=== PATIENT | male | born 1970 ===

== ENCOUNTER 2017-08-09 11:59 | Inpatient (IN) | payer OTHER ==
[2017-08-09] MEDS ORDERED: HYDROmorphone 0.5 mg/0.5 ml ISec IVP STA (12:55)
[2017-08-09] MEDS ORDERED: Sodium Chloride 0.9% 500 ML IV STA (12:56)
--- NOTE | 2017-08-09 12:59 | ED PDOC ---
HPI: Back Time Seen by Provider: 08/09/17 12:42 Chief Complaint (Nursing): Back Pain Chief Complaint (Provider): Back pain History Per: Patient History/Exam Limitations: no limitations Onset/Duration Of Symptoms: Days (months) Current Symptoms Are (Timing): Still Present Additional Complaint(s): Pt. with low back pain, meds not helping. Increasing pain. No numbness, tingles, weakness, dizziness, fever, cough, runny nose. No abd pain. Past Medical History Reviewed: Nursing Documentation, Vital Signs Vital Signs: Last Vital Signs Temp 98.8 F 08/09/17 12:13 Pulse 77 08/09/17 12:13 Resp 16 08/09/17 12:13 BP 145/89 08/09/17 12:13 Pulse Ox 100 08/09/17 12:13 - Medical History PMH: Back Problems - Surgical History Surgical History: No Surg Hx - Family History Family History: States: Unknown Family Hx - Living Arrangements Living Arrangements: With Family - Social History Alcohol: None Drugs: Denies - Home Medications Home Medications: Ambulatory Orders Medication Instructions Recorded Diclofenac Sodium [Voltaren] 50 mg PO TID PRN 08/09/17 Famotidine [Pepcid] 20 mg PO BID 08/09/17 Gabapentin [Neurontin] 600 mg PO TID 08/09/17 Ibuprofen [Motrin Tab] 800 mg PO TID PRN 08/09/17 Methocarbamol [Robaxin] 750 mg PO TID PRN 08/09/17 - Allergies Allergies/Adverse Reactions: Allergies Allergy/AdvReac Type Severity Reaction Status Date / Time No Known Allergies Allergy Verified 08/09/17 12:13 Review of Systems ROS Statement: Except As Marked, All Systems Reviewed And Found Negative Musculoskeletal: Positive for: Back Pain Physical Exam - Reviewed Nursing Documentation Reviewed: Yes Vital Signs Reviewed: Yes - Physical Exam Appears: Positive for: Non-toxic, No Acute Distress Head Exam: Positive for: ATRAUMATIC, NORMAL INSPECTION, NORMOCEPHALIC Skin: Positive for: Normal Color, Warm, DRY Eye Exam: Positive for: EOMI, Normal appearance, PERRL ENT: Positive for: Normal ENT Inspection Neck: Positive for: Normal, Painless ROM Cardiovascular/Chest: Positive for: Regular Rate, Rhythm Respiratory: Positive for: CNT, Normal Breath Sounds Gastrointestinal/Abdominal: Positive for: Normal Exam, Bowel Sounds, Soft. Negative for: Tenderness Back: Positive for: Other (mild tender across lower) Extremity: Positive for: Normal ROM. Negative for: Tenderness, Pedal Edema Neurologic/Psych: Positive for: Alert, Oriented. Negative for: Motor/Sensory Deficits - ECG O2 Sat by Pulse Oximetry: 100 Pulse Ox Interpretation: Normal - Progress ED Course And Treament: 1259: Stable. No numbness, tingles, incontinence, constipation. Will need further back pain eval. Spoke with Dr. Dee who will admit for further eval and tx. Disposition - Clinical Impression Clinical Impression: Back pain Counseled Patient/Family Regarding: Studies Performed, Diagnosis - Disposition Disposition Time: 13:01 Condition: FAIR - Pt Status Changed To: Hospital Disposition Of: Inpatient - Admit Certification Admit to Inpatient:: After my assessment, the patient will require hospitalization for at least two midnights. This is because of the severity of symptoms shown, intensity of services needed, and/or the medical risk in this patient being treated as an outpatient. - POA Present On Arrival: None
[2017-08-09 13:32] LABS: BASO # 0.1 K/uL (0.0-0.2); BASO % 0.7 % (0.0-2.0); EOS # 0.3 K/uL (0.0-0.7); EOS % 2.7 % (0.0-4.0); HEMATOCRIT 42.9 % (35.0-51.0); LYMPH # 1.7 K/uL (1.0-4.3); LYMPH % 16.9 % (20.0-40.0); MEAN CELL VOLUME 83.4 fl (80.0-94.0); MEAN CORPUSCULAR HEMOGLOBIN 28.5 pg (27.0-31.0); MEAN CORPUSCULAR HGB CONC 34.2 g/dL (33.0-37.0); MEAN PLATELET VOLUME 8.9 fl (7.2-11.7); MONO # 0.6 K/uL (0.0-0.8); MONO % 6.1 % (0.0-10.0); NEUT # 7.4 K/uL (1.8-7.0); NEUT % 73.6 % (50.0-75.0); NRBC % 0.1 % (0.0-0.0); RED CELL DISTRIBUTION WIDTH 13.7 % (11.5-14.5); WHITE BLOOD COUNT 10.1 K/uL (4.8-10.8)
[2017-08-09 13:42] LABS: BLOOD UREA NITROGEN 11 mg/dl (9-20); CALCIUM 9.2 mg/dL (8.4-10.2); CARBON DIOXIDE 25 mmol/L (22-30); CHLORIDE 106 mmol/L (98-107); GFR AFRICAN-AMERICAN > 60; GLUCOSE,RANDOM 93 mg/dL (75-110); POTASSIUM 3.8 MMOL/L (3.6-5.0); RBC URINE 1 /hpf (0-3); SODIUM 143 mmol/l (132-148); URINE BILIRUBIN NEGATIVE (NEGATIVE); URINE BLOOD NEGATIVE (NEGATIVE); URINE COLOR YELLOW (YELLOW); URINE GLUCOSE (UA) NEG (Normal); URINE KETONE NEGATIVE (NEGATIVE); URINE LEUKOCYTE ESTERASE NEG Leu/uL (Negative); URINE PROTEIN NEGATIVE (NEGATIVE); URINE UROBILINOGEN 0.2-1.0 mg/dL (0.2-1.0); WBC URINE 1 /hpf (0-5)
[2017-08-09 13:47] LABS: PARTIAL THROMBOPLASTIN TIME 28.4 Seconds (25.6-37.1)
[2017-08-09] MEDS ORDERED: Oxycodone/Acetaminophen 5/325 mg Tab PO PRN (15:28)
--- NOTE | 2017-08-09 16:10 | RAD ---
HISTORY: back pain . Technique: Single view portable semi erect @ 13:31. COMPARISON: None. FINDINGS: LUNGS: No active pulmonary disease. PLEURA: No significant pleural effusion identified, no pneumothorax apparent. CARDIOVASCULAR: No radiographic findings to suggest acute or significant cardiovascular disease. OSSEOUS STRUCTURES: No significant abnormalities. VISUALIZED UPPER ABDOMEN: Normal. OTHER FINDINGS: None. IMPRESSION: No active disease. Please note: No preliminary interpretation of this examination rendered by emergency department personnel (Physician and/or PA declined to provide preliminary report of their findings/ observations).
[2017-08-09] MEDS: HYDROmorphone 0.5 mg/0.5 ml ISec IVP PRN (19:55)
--- NOTE | 2017-08-09 23:52 | CP.PCM.HP ---
History of Present Illness - History of Present Illness History of Present Illness: This is a 47 y/o male admitted for intractable lower back pain . He sustained a work related injury in March 2017. He developed a very sharp lower back pain while carrying a heavy load in a [employer] where he worked. He was started on pain management and other conservative measures but symptoms progressively worsened. MRI showed lumbar herniated disc . He developed lumbar radiculopathy and experience a lot of pain in the suprapubic and perianal and gluteal areas. Due to peristence of pain he sought ER eval. He denies any other medical conditon. Has no chest pain or SOB. Initial labs showed RBBB and possible old infarct inferiorly. Present on Admission - Present on Admission Any Indicators Present on Admission: No History of DVT/PE: No History of Uncontrolled Diabetes: No Urinary Catheter: No Decubitus Ulcer Present: No Review of Systems - Musculoskeletal Musculoskeletal: Radiating Pain into Limb Past Patient History - Past Medical History & Family History Past Medical History?: No - Past Social History Smoking Status: Never Smoked - HEMATOLOGICAL/ONCOLOGICAL Hx AIDS: No Hx Human Immunodeficiency Virus (HIV): No - MUSCULOSKELETAL/RHEUMATOLOGICAL Hx Falls: No Hx Herniated Disk: Yes - PSYCHIATRIC Hx Substance Use: No - ANESTHESIA Hx Anesthesia: No Meds Allergies/Adverse Reactions: Allergies Allergy/AdvReac Type Severity Reaction Status Date / Time No Known Allergies Allergy Verified 08/09/17 12:13 Physical Exam - Head Exam Head Exam: NORMAL INSPECTION - Eye Exam Eye Exam: Normal appearance - Respiratory Exam Respiratory Exam: NORMAL BREATHING PATTERN - Cardiovascular Exam Cardiovascular Exam: REGULAR RHYTHM - GI/Abdominal Exam GI & Abdominal Exam: Normal Bowel Sounds - Neurological Exam Neurological exam: CN II-XII Intact - Psychiatric Exam Psychiatric exam: Normal Mood Results - Vital Signs Recent Vital Signs: Last Vital Signs Temp 97.6 F 08/09/17 15:56 Pulse 75 08/09/17 15:56 Resp 18 08/09/17 15:56 BP 117/71 08/09/17 15:56 Pulse Ox 98 08/09/17 15:56 - Labs Result Diagrams: 08/09/17 13:20 08/09/17 13:20 Labs: Laboratory Results - last 24 hr 08/09/17 08/09/17 08/09/17 13:20 13:20 13:20 WBC 10.1 RBC 5.15 Hgb 14.7 Hct 42.9 MCV 83.4 MCH 28.5 MCHC 34.2 RDW 13.7 Plt Count 167 MPV 8.9 Neut % (Auto) 73.6 Lymph % (Auto) 16.9 L [place] % (Auto) 6.1 Eos % (Auto) 2.7 Baso % (Auto) 0.7 Neut # 7.4 H Lymph # 1.7 [place] # 0.6 Eos # 0.3 Baso # 0.1 PT 12.5 INR 1.1 APTT 28.4 Sodium 143 Potassium 3.8 Chloride 106 Carbon Dioxide 25 Anion Gap 15 BUN 11 Creatinine 0.7 L Est GFR ( Amer) > 60 Est GFR (Non-Af Amer) > 60 Random Glucose 93 Calcium 9.2 Troponin I < 0.0120 Urine Color Urine Clarity Urine pH Ur Specific [place] Urine Protein Urine Glucose (UA) Urine Ketones Urine Blood Urine Nitrate Urine Bilirubin Urine Urobilinogen Ur Leukocyte Esterase Urine RBC (Auto) Urine Microscopic WBC 08/09/17 13:20 WBC RBC Hgb Hct MCV MCH MCHC RDW Plt Count MPV Neut % (Auto) Lymph % (Auto) [place] % (Auto) Eos % (Auto) Baso % (Auto) Neut # Lymph # [place] # Eos # Baso # PT INR APTT Sodium Potassium Chloride Carbon Dioxide Anion Gap BUN Creatinine Est GFR ( Amer) Est GFR (Non-Af Amer) Random Glucose Calcium Troponin I Urine Color Yellow Urine Clarity Clear Urine pH 8.0 Ur Specific [place] 1.014 Urine Protein Negative Urine Glucose (UA) Neg Urine Ketones Negative Urine Blood Negative Urine Nitrate Negative Urine Bilirubin Negative Urine Urobilinogen 0.2-1.0 Ur Leukocyte Esterase Neg Urine RBC (Auto) 1 Urine Microscopic WBC 1 Assessment & Plan (1) Herniated lumbar intervertebral disc Status: Acute (2) Lumbar radiculopathy Status: Acute (3) Abnormal finding on EKG Status: Acute - Assessment and Plan (Free Text) Plan: Reviewed all labs Cardiology eval Otherwise medically stable for surgery Consult Dr Pritchett Pain medications
[2017-08-09] MEDS ORDERED: Lactated Ringer's 1,000 ML IV SCH (23:59)
[2017-08-10] MEDS ORDERED: Dextrose 5%/0.45% NS 1,000 ML IV SCH (06:00)
[2017-08-10] MEDS ORDERED: Rocuronium 10 mg/ml (5 ml) ONE (07:34)
[2017-08-10] MEDS ORDERED: Midazolam 2 MG/2 ML VIAL ONE (07:34)
[2017-08-10] MEDS ORDERED: Phenylephrine 10 mg/ml Inj ONE (07:34)
[2017-08-10] MEDS ORDERED: ePHEDrine 50 mg/ml Inj ONE (07:34)
[2017-08-10] MEDS ORDERED: Propofol 10 mg/ml Inj (20 ML) ONE ×2 (07:34→08:47)
[2017-08-10] MEDS ORDERED: Succinylcholine 200 mg/10 ml Inj IV ONE (07:34)
[2017-08-10] MEDS ORDERED: Lactated Ringer's 1,000 ML IV ONE ×2 (07:50→08:45)
--- NOTE | 2017-08-10 07:52 | CP.PCM.CON ---
History of Present Illness - History of Present Illness History of Present Illness: Dr. Pritchett asked to see this 47 yo male admitted with intractable LBP and worsening with radiation LLE,difficulty ambulating,uses a cane at times,unable to work,failed conservative Rx with prescribed meds,PT and epidural injections, WRI lifting ,imaging reviewed by Dr. Pritchett showing lumbar spondylosis and HNP, surgical and non surgical option sd/w pt,due to worsening symptoms,inability to do ADL's pt agree's to have a lumbar decompression,denies fall,pelvic paresthesias,B/B incontinance Review of Systems - Review of Systems Systems not reviewed;Unavailable: Acuity of Condition - Cardiovascular Additional comments: RBBB on EKG,denies Angina,palpitations,[place] - Musculoskeletal Musculoskeletal: Muscle Weakness, Radiating Pain into Limb, Tingling - Neurological Neurological: As Per HPI Past Patient History - Infectious Disease Hx of Infectious Diseases: None - Tetanus Immunizations Tetanus Immunization: Unknown - Past Medical History & Family History Past Medical History?: No - Past Social History Smoking Status: Never Smoked Chewing Tobacco Use: No Cigar Use: No Occupation: [employer] worker Alcohol: None Drugs: Denies Home Situation {Lives}: With Family Domestic Violence: Negative - HEMATOLOGICAL/ONCOLOGICAL Hx AIDS: No Hx Human Immunodeficiency Virus (HIV): No - MUSCULOSKELETAL/RHEUMATOLOGICAL Hx Falls: No Hx Herniated Disk: Yes - PSYCHIATRIC Hx Substance Use: No - ANESTHESIA Hx Anesthesia: No Meds Allergies/Adverse Reactions: Allergies Allergy/AdvReac Type Severity Reaction Status Date / Time No Known Allergies Allergy Verified 08/09/17 12:13 - Medications Medications: Current Medications Famotidine (Pepcid) 20 mg PO BID [facility] Last Admin: 08/09/17 17:13 Dose: 20 mg Gabapentin (Neurontin) 600 mg PO TID [facility] Last Admin: 08/09/17 17:13 Dose: 600 mg Hydromorphone HCl (Dilaudid) 0.5 mg IVP Q4 PRN PRN Reason: Pain, severe (8-10) Last Admin: 08/09/17 19:55 Dose: 0.5 mg Dextrose/Sodium Chloride (Dextrose 5%-0.45% Ns 500 Ml) 500 mls @ 80 mls/hr IV .Q6H15M [facility] Stop: 08/11/17 00:09 Last Admin: 08/10/17 05:54 Dose: 80 mls/hr Ibuprofen (Motrin Tab) 800 mg PO TID PRN PRN Reason: Pain, Mild (1-3) Ondansetron HCl (Zofran Inj) 4 mg IVP Q6 PRN PRN Reason: Nausea/Vomiting Physical Exam - Constitutional Appears: Well, Non-toxic, No Acute Distress - Head Exam Head Exam: ATRAUMATIC, NORMAL INSPECTION, NORMOCEPHALIC - Eye Exam Eye Exam: EOMI, Normal appearance, PERRL Pupil Exam: NORMAL ACCOMODATION - ENT Exam ENT Exam: Mucous Membranes Moist - Neck Exam Neck exam: Positive for: Normal Inspection - Respiratory Exam Respiratory Exam: Clear to Auscultation Bilateral - Cardiovascular Exam Cardiovascular Exam: REGULAR RHYTHM, +S1, +S2 - GI/Abdominal Exam GI & Abdominal Exam: Normal Bowel Sounds, Soft - Rectal Exam Rectal Exam: Deferred - Extremities Exam Extremities exam: Positive for: normal inspection, pedal pulses present - Back Exam Back exam: vertebral tenderness - Neurological Exam Neurological exam: Alert, Oriented x3 Additional comments: NANCE x 4 antigravity with good strength,left dorsiflexion weakness,decreased sensation L5 dermatome,depressed DTR's - Psychiatric Exam Psychiatric exam: Normal Affect, Normal Mood - Skin Skin Exam: Dry, Intact, Normal Color Results - Vital Signs Recent Vital Signs: Last Vital Signs Temp 97.6 F 08/10/17 00:00 Pulse 64 08/10/17 00:00 Resp 19 08/10/17 00:00 BP 112/69 08/10/17 00:00 Pulse Ox 95 08/10/17 00:00 - Labs Result Diagrams: 08/09/17 13:20 08/09/17 13:20 Labs: Laboratory Results - last 24 hr 08/09/17 08/09/17 08/09/17 13:20 13:20 13:20 WBC 10.1 RBC 5.15 Hgb 14.7 Hct 42.9 MCV 83.4 MCH 28.5 MCHC 34.2 RDW 13.7 Plt Count 167 MPV 8.9 Neut % (Auto) 73.6 Lymph % (Auto) 16.9 L [place] % (Auto) 6.1 Eos % (Auto) 2.7 Baso % (Auto) 0.7 Neut # 7.4 H Lymph # 1.7 [place] # 0.6 Eos # 0.3 Baso # 0.1 PT 12.5 INR 1.1 APTT 28.4 Sodium 143 Potassium 3.8 Chloride 106 Carbon Dioxide 25 Anion Gap 15 BUN 11 Creatinine 0.7 L Est GFR ( Amer) > 60 Est GFR (Non-Af Amer) > 60 Random Glucose 93 Calcium 9.2 Troponin I < 0.0120 Urine Color Urine Clarity Urine pH Ur Specific [place] Urine Protein Urine Glucose (UA) Urine Ketones Urine Blood Urine Nitrate Urine Bilirubin Urine Urobilinogen Ur Leukocyte Esterase Urine RBC (Auto) Urine Microscopic WBC 08/09/17 13:20 WBC RBC Hgb Hct MCV MCH MCHC RDW Plt Count MPV Neut % (Auto) Lymph % (Auto) [place] % (Auto) Eos % (Auto) Baso % (Auto) Neut # Lymph # [place] # Eos # Baso # PT INR APTT Sodium Potassium Chloride Carbon Dioxide Anion Gap BUN Creatinine Est GFR ( Amer) Est GFR (Non-Af Amer) Random Glucose Calcium Troponin I Urine Color Yellow Urine Clarity Clear Urine pH 8.0 Ur Specific [place] 1.014 Urine Protein Negative Urine Glucose (UA) Neg Urine Ketones Negative Urine Blood Negative Urine Nitrate Negative Urine Bilirubin Negative Urine Urobilinogen 0.2-1.0 Ur Leukocyte Esterase Neg Urine RBC (Auto) 1 Urine Microscopic WBC 1 Assessment & Plan - Assessment and Plan (Free Text) Assessment: 47 yo male with Lumbar Spondylosis and left L4-5 HNP/LLE radiculapathy Plan: risks and benefits d/w pt,pt expressed understanding and wishes to proceed with Left L4-5 Laminectomy,medial facetectomy and microdiscectomy.
[2017-08-10] MEDS ORDERED: Lidocaine 2% w Epi 1:200,000 Pf Inj IJ ONE (08:00)
[2017-08-10] MEDS ORDERED: HEMOSTATIC MATRIX 10 ML DIS.NEEDLE TOP ONE (08:40)
[2017-08-10] MEDS ORDERED: Neostigmine Methylsulfate 3mg/3ml Syringe IV ONE (08:41)
[2017-08-10] MEDS ORDERED: Bupivacaine HCl 0.25% PF (30 ml) Inj IJ ONE ×2 (08:44→08:55)
--- NOTE | 2017-08-10 08:52 | CP.PCM.CON ---
History of Present Illness - History of Present Illness History of Present Illness: I was called last night at 10:42 pm for patient with EKG changes who was scheduled for OR with Dr. Pritchett. EKG reveals sinus rhythm with RBBB. Patient was already taken to the OR with Dr. Pritchett. Past Patient History - Past Medical History & Family History Past Medical History?: No - Past Social History Smoking Status: Never Smoked - HEMATOLOGICAL/ONCOLOGICAL Hx AIDS: No Hx Human Immunodeficiency Virus (HIV): No - MUSCULOSKELETAL/RHEUMATOLOGICAL Hx Falls: No Hx Herniated Disk: Yes - PSYCHIATRIC Hx Substance Use: No - ANESTHESIA Hx Anesthesia: No Meds Allergies/Adverse Reactions: Allergies Allergy/AdvReac Type Severity Reaction Status Date / Time No Known Allergies Allergy Verified 08/09/17 12:13 - Medications Medications: Current Medications Famotidine (Pepcid) 20 mg PO BID [facility] Last Admin: 08/10/17 08:09 Dose: Not Given Gabapentin (Neurontin) 600 mg PO TID [facility] Last Admin: 08/10/17 08:09 Dose: Not Given Hydromorphone HCl (Dilaudid) 0.5 mg IVP Q4 PRN PRN Reason: Pain, severe (8-10) Last Admin: 08/09/17 19:55 Dose: 0.5 mg Dextrose/Sodium Chloride (Dextrose 5%-0.45% Ns 500 Ml) 500 mls @ 80 mls/hr IV .Q6H15M [facility] Stop: 08/11/17 00:09 Last Admin: 08/10/17 05:54 Dose: 80 mls/hr Ibuprofen (Motrin Tab) 800 mg PO TID PRN PRN Reason: Pain, Mild (1-3) Ondansetron HCl (Zofran Inj) 4 mg IVP Q6 PRN PRN Reason: Nausea/Vomiting Results - Vital Signs Recent Vital Signs: Last Vital Signs Temp 97.6 F 08/10/17 00:00 Pulse 64 08/10/17 00:00 Resp 19 08/10/17 00:00 BP 112/69 08/10/17 00:00 Pulse Ox 95 08/10/17 00:00 - Labs Result Diagrams: 08/09/17 13:20 08/09/17 13:20 Labs: Laboratory Results - last 24 hr 08/09/17 08/09/17 08/09/17 13:20 13:20 13:20 WBC 10.1 RBC 5.15 Hgb 14.7 Hct 42.9 MCV 83.4 MCH 28.5 MCHC 34.2 RDW 13.7 Plt Count 167 MPV 8.9 Neut % (Auto) 73.6 Lymph % (Auto) 16.9 L [place] % (Auto) 6.1 Eos % (Auto) 2.7 Baso % (Auto) 0.7 Neut # 7.4 H Lymph # 1.7 [place] # 0.6 Eos # 0.3 Baso # 0.1 PT 12.5 INR 1.1 APTT 28.4 Sodium 143 Potassium 3.8 Chloride 106 Carbon Dioxide 25 Anion Gap 15 BUN 11 Creatinine 0.7 L Est GFR ( Amer) > 60 Est GFR (Non-Af Amer) > 60 Random Glucose 93 Calcium 9.2 Troponin I < 0.0120 Urine Color Urine Clarity Urine pH Ur Specific [place] Urine Protein Urine Glucose (UA) Urine Ketones Urine Blood Urine Nitrate Urine Bilirubin Urine Urobilinogen Ur Leukocyte Esterase Urine RBC (Auto) Urine Microscopic WBC 08/09/17 13:20 WBC RBC Hgb Hct MCV MCH MCHC RDW Plt Count MPV Neut % (Auto) Lymph % (Auto) [place] % (Auto) Eos % (Auto) Baso % (Auto) Neut # Lymph # [place] # Eos # Baso # PT INR APTT Sodium Potassium Chloride Carbon Dioxide Anion Gap BUN Creatinine Est GFR ( Amer) Est GFR (Non-Af Amer) Random Glucose Calcium Troponin I Urine Color Yellow Urine Clarity Clear Urine pH 8.0 Ur Specific [place] 1.014 Urine Protein Negative Urine Glucose (UA) Neg Urine Ketones Negative Urine Blood Negative Urine Nitrate Negative Urine Bilirubin Negative Urine Urobilinogen 0.2-1.0 Ur Leukocyte Esterase Neg Urine RBC (Auto) 1 Urine Microscopic WBC 1
[2017-08-10] MEDS: HYDROmorphone 0.5 mg/0.5 ml ISec IVP PRN ×6 (09:20→19:59)
--- NOTE | 2017-08-10 11:01 | CARD ---
APPROVED REPORT EKG Measurement Heart [id number] <Conclusion> Normal sinus rhythm Right bundle branch block Inferior infarct, age undetermined Abnormal ECG
--- NOTE | 2017-08-10 11:15 | OP ---
PROCEDURE DATE: 08/10/2017 PREOPERATIVE DIAGNOSIS: Herniated lumbar disk at L4-L5. POSTOPERATIVE DIAGNOSIS: Herniated lumbar disk at L4-L5. PROCEDURE: Left L4-L5 hemilaminectomy, medial facetectomy and decompression and foraminotomy and decompression of the midline. SURGEON: Antonio Pritchett MD MEDICAL STAFF COORDINATOR: Jenny Escudero, physician assistant professor of communication. Fluoroscopy has been used for the procedure. Microscopy has been used for the procedure. Jenny Escudero is the physician assistant professor of communication, who helped me perform the surgery. She stayed throughout the case from the beginning to the end. DESCRIPTION OF PROCEDURE: The patient was brought to the Operating Room, anesthetized with general endotracheal anesthesia, placed in a prone position on a Rafael table. Care was taken to protect all pressure points. Back of the lumbar area thoroughly prepped and draped in the same sterile manner after marking was consistent for lumbar laminectomy at L4-L5. After prepping and draping the area, skin has been incised. Bleeding skins have been bipolar coagulated. After using a [employer] money room supervisor, paraspinal muscles have been detached from attachments of spinous process, lamina of L4-L5 on the left side. Fely retractor has been applied to alter the facet joint of L4-L5. By using a high-speed drill, the lamina of L4-L5, medial part of the facets of L4-L5 have been drilled. Drilling is continued until the top and bottom of the ligamentum flavum has seen. Drilling is also continued on the middle part of the facets until the turn of ligamentum flavum has been seen. Once this has been done, thinned out the lamina, medial part of the facets and ligamentum flavum has been removed. Nerve root and neural tube retracted medially. There was a herniated disk noted. However, this was found to be hard. There was no extruded fragment noted. At this point, the spinous process in the midline has been further drilled and the ligamentum flavum from the opposite side also has been removed decompressing the midline as well since the patient has a central herniated disk. After that, hemostasis was best achieved. Fascia across the interspinous ligaments, spinous process with 1-Vicryl, subcutaneous tissue with 3-Vicryl. Skin has been closed with intradermal 3-Vicryl stitches. The patient tolerated the procedure well. After procedure, mobilized to the recovery room in stabilized condition. Antonio Pritchett MD
[2017-08-10] MEDS: Dexamethasone 4 mg/1 ml IVP SCH ×3 (11:28→21:28)
--- NOTE | 2017-08-10 12:46 | CP.PCM.PN ---
Subjective - Date & Time of Evaluation Date of Evaluation: 08/10/17 Time of Evaluation: 12:37 - Subjective Subjective: 47 YO M seen post operitivly on POD 0 w/ Dr. Dee. Patient is doing well. Is able to move lower extremity. Patient tolerated the procedure well. Pain is controlled with medication. Patient tolerated procedure well, no drains. Objective - Vital Signs/Intake and Output Vital Signs (last 24 hours): Temp Pulse Resp BP Pulse Ox 98.5 F 74 18 138/77 95 08/10/17 11:10 08/10/17 11:10 08/10/17 11:10 08/10/17 11:10 08/10/17 11:10 Intake and Output: 08/10/17 08/10/17 06:59 18:59 Intake Total 1300 Balance 1300 - Medications Medications: Current Medications Cyclobenzaprine HCl (Flexeril) 10 mg PO TID PRN PRN Reason: Muscle spasm Dexamethasone (Decadron Inj) 4 mg IVP Q6 [facility] Last Admin: 08/10/17 11:28 Dose: Not Given Docusate Sodium (Colace) 100 mg PO BID [facility] Famotidine (Pepcid) 20 mg PO BID [facility] Last Admin: 08/10/17 08:09 Dose: Not Given Gabapentin (Neurontin) 600 mg PO TID [facility] Last Admin: 08/10/17 12:07 Dose: 600 mg Hydromorphone HCl (Dilaudid) 0.5 mg IVP Q4 PRN PRN Reason: Pain, severe (8-10) Last Admin: 08/10/17 11:33 Dose: 0.5 mg Ibuprofen (Motrin Tab) 800 mg PO TID PRN PRN Reason: Pain, Mild (1-3) Ondansetron HCl (Zofran Inj) 4 mg IVP Q6 PRN PRN Reason: Nausea/Vomiting Oxycodone/Acetaminophen (Percocet 5/325 Mg Tab) 2 tab PO Q4 PRN PRN Reason: Pain, moderate (4-7) Stop: 08/13/17 10:42 - Labs Labs: 08/09/17 13:20 08/09/17 13:20 PT 12.5 Seconds (9.8-13.1) 08/09/17 13:20 INR 1.1 (0.9-1.2) 08/09/17 13:20 APTT 28.4 Seconds (25.6-37.1) 08/09/17 13:20 - Constitutional Appears: No Acute Distress - Respiratory Exam Respiratory Exam: Clear to Ausculation Bilateral, NORMAL BREATHING PATTERN. absent: Rhonchi, Wheezes - Cardiovascular Exam Cardiovascular Exam: REGULAR RHYTHM, +S1, +S2 - Neurological Exam Neurological Exam: Alert, Awake, CN II-XII Intact - Skin Skin Exam: Normal Color, Warm Assessment and Plan - Assessment and Plan (Free Text) Assessment: 47 yo male with Lumbar Spondylosis and left L4-5 HNP/LLE radiculapathy - S/P L4-L5 Laminectomy - patient tolerated procedure well - No drains - Taper decodron - Cyclobenzoprine - pain controlled with medication
[2017-08-10] MEDS ORDERED: Dexamethasone 4 MG in Sodium Chloride 0.9% 50 ML IVPB SCH (16:00)
[2017-08-10] MEDS: Oxycodone/Acetaminophen 5/325 mg Tab PO PRN ×2 (16:03→22:42)
--- NOTE | 2017-08-10 17:35 | RAD ---
PROCEDURE: Fluoroscopy up to 1 hr. HISTORY: LUMBAR LAMINECTOMY COMPARISON: None TECHNIQUE: Standard protocol for this study/examination. FINDINGS: Total fluoroscopic time (continuous mode) utilized during the procedure: 1.9 seconds IMPRESSION: Less than 1 hr fluoroscopic time utilized during performance of the procedure.
[2017-08-11] MEDS: Dexamethasone 4 mg/1 ml IVP SCH ×2 (04:06→09:05)
[2017-08-11] MEDS: Oxycodone/Acetaminophen 5/325 mg Tab PO PRN ×3 (04:11→12:55)
[2017-08-11 06:51] LABS: BASO % 0.1 % (0.0-2.0); HEMATOCRIT 40.9 % (35.0-51.0); LYMPH # 0.8 K/uL (1.0-4.3); LYMPH % 4.8 % (20.0-40.0); MEAN CELL VOLUME 81.1 fl (80.0-94.0); MEAN CORPUSCULAR HEMOGLOBIN 28.7 pg (27.0-31.0); MEAN CORPUSCULAR HGB CONC 35.4 g/dL (33.0-37.0); MEAN PLATELET VOLUME 9.2 fl (7.2-11.7); MONO # 0.6 K/uL (0.0-0.8); MONO % 3.6 % (0.0-10.0); NEUT # 14.3 K/uL (1.8-7.0); NEUT % 91.5 % (50.0-75.0); PLATELET COUNT 188 K/uL (130-400); RED CELL DISTRIBUTION WIDTH 13.6 % (11.5-14.5); WHITE BLOOD COUNT 15.7 K/uL (4.8-10.8)
[2017-08-11 07:28] VITALS: BP 133/77; RESP 18; TEMP 97.6
[2017-08-11 08:10] LABS: BLOOD UREA NITROGEN 12 mg/dl (9-20); CALCIUM 9.4 mg/dL (8.4-10.2); CARBON DIOXIDE 25 mmol/L (22-30); CHLORIDE 103 mmol/L (98-107); GFR AFRICAN-AMERICAN > 60; GLUCOSE,RANDOM 132 mg/dL (75-110); POTASSIUM 4.2 MMOL/L (3.6-5.0); SODIUM 139 mmol/l (132-148)
[2017-08-11 09:51] VITALS: PULSE 96; O2SAT 94
[2017-08-11 10:16] LABS: NEUTROPHIL 91 % (42-75); TOTAL CELLS COUNTED 100
--- NOTE | 2017-08-11 13:43 | CP.PCM.PN ---
Subjective - Date & Time of Evaluation Date of Evaluation: 08/11/17 Time of Evaluation: 10:00 - Subjective Subjective: Neurosurg f/u for Dr. Pritchett Patient states that the pain in his left hip and leg is improved post op, he admits to continued back pain, but says the worse pain was in his leg and it is better. He says the percocet controls the pain well. Denies CP/SOB/dizziness/ numbness/tingling at this time, good appetite, +void +gas Objective - Vital Signs/Intake and Output Vital Signs (last 24 hours): Temp Pulse Resp BP Pulse Ox 97.6 F 96 H 18 133/77 94 L 08/11/17 07:28 08/11/17 09:29 08/11/17 07:28 08/11/17 07:28 08/11/17 09:29 - Medications Medications: Current Medications Cyclobenzaprine HCl (Flexeril) 10 mg PO TID PRN PRN Reason: Muscle spasm Dexamethasone (Decadron Inj) 4 mg IVP Q6 [facility] Last Admin: 08/11/17 09:05 Dose: 4 mg Docusate Sodium (Colace) 100 mg PO BID [facility] Last Admin: 08/11/17 08:29 Dose: 100 mg Famotidine (Pepcid) 20 mg PO BID [facility] Last Admin: 08/11/17 08:29 Dose: 20 mg Gabapentin (Neurontin) 600 mg PO TID [facility] Last Admin: 08/11/17 12:45 Dose: 600 mg Hydromorphone HCl (Dilaudid) 0.5 mg IVP Q4 PRN PRN Reason: Pain, severe (8-10) Last Admin: 08/10/17 19:59 Dose: 0.5 mg Ibuprofen (Motrin Tab) 800 mg PO TID PRN PRN Reason: Pain, Mild (1-3) Ondansetron HCl (Zofran Inj) 4 mg IVP Q6 PRN PRN Reason: Nausea/Vomiting Oxycodone/Acetaminophen (Percocet 5/325 Mg Tab) 2 tab PO Q4 PRN PRN Reason: Pain, moderate (4-7) Stop: 08/13/17 10:42 Last Admin: 08/11/17 12:55 Dose: 2 tab - Labs Labs: 08/11/17 05:20 08/11/17 05:20 PT 12.5 Seconds (9.8-13.1) 08/09/17 13:20 INR 1.1 (0.9-1.2) 08/09/17 13:20 APTT 28.4 Seconds (25.6-37.1) 08/09/17 13:20 - Back Exam Back Exam: tenderness Additional comments: sensation itnact BLE calves soft Nt neg homans - Neurological Exam Neurological Exam: Alert, Awake, CN II-XII Intact, Oriented x3 Neuro motor strength exam: Left Lower Extremity: 4 (4+/5 left DF, 5/5 great toe/ PF, knee flex/ext) - Psychiatric Exam Psychiatric exam: Normal Affect, Normal Mood - Skin Skin Exam: Dry, Intact, Normal Color, Warm Assessment and Plan (1) Herniated lumbar intervertebral disc Assessment & Plan: POD#1 s/p L4/L5 hemilaminectomy, medial facetectomy and decompression -d/w Dr. Dee, plan d/c home today -f/u Dr. Pritchett 3 weeks, call for appointment -pain meds/decadron taper as per Dr. Dee Status: Acute
== END 2017-08-11 14:24 | disposition home or self-care (01) | DRG 517 ==
LOC: H.ER 11:59 → H.ERHOLD 13:02 → H.MEDSURG1 14:45
PROVIDERS: ADMIT Family Medicine; ATTEND Family Medicine
PROC: 01NB0ZZ Release Lumbar Nerve, Open Approach (ICD-10-PCS; principal; 2017-08-10 07:45)
DX: M51.16 Intervertebral disc disorders with radiculopathy, lumbar region (principal); M47.816 Spondylosis without myelopathy or radiculopathy, lumbar region; R94.31 Abnormal electrocardiogram [ECG] [EKG]; X50.0XXA Overexertion from strenuous movement or load, initial encounter; Y92.512 Supermarket, store or market as the place of occurrence of the external cause; Y99.0 Civilian activity done for income or pay